=== PATIENT | male | born 1975 | race Caucasian/White ===

== ENCOUNTER 2018-07-31 17:16 | Emergency (ER) | payer MEDICARE ==
[2018-07-31] MEDS ORDERED: Dexamethasone 4 mg/1 ml IM STA (17:54)
[2018-07-31] MEDS ORDERED: Lidocaine 5% Patch TD STA (17:54)
[2018-07-31] MEDS ORDERED: Lidocaine 5% Patch TD ONE (18:01)
[2018-07-31 18:42] LABS: BASO # 0.1 K/uL (0.0-0.2); BASO % 0.6 % (0.0-2.0); EOS # 0.1 K/uL (0.0-0.7); EOS % 1.1 % (0.0-4.0); HEMOGLOBIN 14.8 g/dL (12.0-18.0); LYMPH # 2.3 K/uL (1.0-4.3); LYMPH % 21.1 % (20.0-40.0); MEAN CELL VOLUME 87.1 fL (80.0-94.0); MEAN CORPUSCULAR HEMOGLOBIN 29.7 pg (27.0-31.0); MEAN PLATELET VOLUME 8.7 fL (7.2-11.7); MONO # 0.6 K/uL (0.0-0.8); MONO % 5.4 % (0.0-10.0); NEUT # 7.7 K/uL (1.8-7.0); NEUT % 71.8 % (50.0-75.0); RED CELL DISTRIBUTION WIDTH 13.5 % (11.5-14.5); WHITE BLOOD COUNT 10.8 K/uL (4.8-10.8)
[2018-07-31 18:53] LABS: ALB/GLOB RATIO 1.5 (1.0-2.1); ALBUMIN 4.4 g/dL (3.5-5.0); ALT/SGPT 28 U/L (21-72); AST/SGOT 20 U/L (17-59); BLOOD UREA NITROGEN 15 mg/dL (9-20); CALCIUM 9.2 mg/dl (8.6-10.4); GFR NON-AFRICAN AMERICAN > 60; LIPASE 103 U/L (23-300)
--- NOTE | 2018-07-31 19:27 | C.PDOC ---
History Of Present Illness 43-year-old male, presents to the emergency department for evaluation of chronic back pain. Pt states he has had chronic pain in his back over the past several years. Patient states he recently saw a spine doctor, who told him he needs surgery for his back after his MRI results. States he has only been taking medical marijuana for his back pain, however that is not working any more. Patient has not tried any medications for his pain. He denies bowel/bladder incontinence, dysuria, abdominal pain, diarrhea, hematuria, or any other associated symptoms. Patient states he thinks he has pancreatitis and is requesting blood work. Time Seen by Provider: 07/31/18 17:28 Chief Complaint (Nursing): Back Pain History Per: Patient History/Exam Limitations: no limitations Past Medical History Reviewed: Historical Data, Nursing Documentation, Vital Signs Vital Signs: Last Vital Signs Temp 98.9 F 07/31/18 17:21 Pulse 87 07/31/18 17:21 Resp 19 07/31/18 17:21 BP 159/95 H 07/31/18 17:21 Pulse Ox 98 07/31/18 17:21 - Medical History PMH: Back Problems, HTN Surgical History: Cholecystectomy Family History: States: No Known Family Hx - Social History Hx Alcohol Use: No Hx Substance Use: Yes - Immunization History Hx Tetanus Toxoid Vaccination: No Hx Influenza Vaccination: Yes Hx Pneumococcal Vaccination: No Review Of Systems Constitutional: Negative for: Fever Gastrointestinal: Negative for: Nausea, Vomiting Musculoskeletal: Positive for: Back Pain Neurological: Negative for: Weakness, Numbness Physical Exam - Physical Exam Appears: Non-toxic, No Acute Distress (Obese) Skin: Warm, Dry, No Rash Head: Atraumatic, Normacephalic Eye(s): bilateral: Normal Inspection Nose: Normal Oral Mucosa: Moist Lips: Normal Appearing Neck: Normal ROM, Supple Chest: Symmetrical Cardiovascular: Rhythm Regular, No Friction Rub, No Murmur Respiratory: Normal Breath Sounds, No Accessory Muscle Use Gastrointestinal/Abdominal: Bowel Sounds (active), Soft, No Tenderness Back: No CVA Tenderness, No Vertebral Tenderness, Paraspinal Tenderness (lumbar, B/L) Extremity: Normal ROM, No Deformity, No Swelling Neurological/Psych: Oriented x3, Normal Speech, Normal Motor Gait: Steady ED Course And Treatment - Laboratory Results Result Diagrams: 07/31/18 18:35 07/31/18 18:35 O2 Sat by Pulse Oximetry: 98 (on RA) Pulse Ox Interpretation: Normal (RA) Medical Decision Making Medical Decision Making: On re-exam, the patient reports improvement of symptoms. Lungs are CTA, heart is RRR, abdomen is soft, non-tender and the patient is tolerating PO well. Ambulatory in the ED with steady gait. Follow up with the medical doctor/clinic within 1-2 days. Return if worsened. Disposition - Disposition Referrals: Silvestre Gao MD [Staff Provider] - Matt Denson MD [Staff Provider] - Disposition: HOME/ ROUTINE Disposition Time: 19:25 Condition: STABLE Additional Instructions: Follow up with the medical doctor within 1-2 days. Return if worsened. Prescriptions: diaZEpam [Valium] 5 mg PO TID #21 tab Naproxen [Naprosyn] 500 mg PO BID #20 tab Instructions: Low Back Pain in Adults Forms: [facility] (Fijian) - Clinical Impression Clinical Impression: Low back pain - Scribe Statement The provider has reviewed the documentation as recorded by the Scribe (Raoul Horan) All medical record entries made by the Scribe were at my direction and personally dictated by me. I have reviewed the chart and agree that the record accurately reflects my personal performance of the history, physical exam, medical decision making, and the department course for this patient. I have also personally directed, reviewed, and agree with the discharge instructions and disposition.
[2018-07-31 19:35] VITALS: BP 141/84; PULSE 76; RESP 18; TEMP 98.1
[2018-07-31 20:43] VITALS: O2SAT 98
== END 2018-07-31 19:48 | disposition home or self-care (01) ==
LOC: C.ER 17:16
DX: M54.5 Low back pain (principal)
CPT/HCPCS: 80053; 83690; 85025; 96372; 99283; J1885; J8540